=== PATIENT | female | born 1975 | race Caucasian/White ===

== ENCOUNTER 2023-03-20 04:58 | Emergency (ER) | payer OTHER ==
[2023-03-20 05:09] VITALS: BP 141/81; PULSE 96; RESP 18; TEMP 99; BMI 25.0
[2023-03-20] MEDS ORDERED: ACETAMINOPHEN 500 MG TABLET (FP) PO ONE (05:19)
[2023-03-20] MEDS ORDERED: ACETAMINOPHEN 500 MG TABLET (FP) ONE (05:20)
== END 2023-03-20 05:32 | disposition home or self-care (01) ==
LOC: FER 04:58
DX: J02.9 Acute pharyngitis, unspecified (principal); Z20.822 Contact with and (suspected) exposure to COVID-19
CPT/HCPCS: 87651; 99283-25; C9803-CS; U0003; U0005